=== PATIENT | male | born 1950 | race Asian ===

== ENCOUNTER 2022-06-13 16:31 | Inpatient (IN) | payer BC, OTHER ==
[~2022-06-13 16:31] MED LIST: CINACALCET HCL 30 MG TAB PO SCH
--- OUTSIDE RECORDS SUMMARY | 2022-06-13 16:35 | XMS REPORT | Continuity of Care Document ---
:1950 Author Organization [facility] t Address [address] [place] [address] [address]. [address] [place] [address] Care Team Providers Name Role Phone PCP, PATIENT DOES NOT HAVE A Primary Care Physician ESTHER London Attending Clinician Unavailable BAIRON MCKEON Attending Clinician Unavailable Bairon Mckeon MD Attending Clinician Payers Payer Name Policy Type Policy Number Effective Date Expiration Date Jean Claude vergara [employer] [id number] 2020 OUT OF NETWORK 00:00:00 Problems Condition Condition Condition Status Onset Resolution Last Treating Co mments Source Name Details Category Date Date Treatment Clinician Date No known No known Disease Unive rs active active ity of problems problems [facility] Allergies, Adverse Reactions, Alerts Allergy Allergy Status Severity Reaction(s) Onset Inactive Treating Comm ents Source Name Type Date Date Clinician NO KNOWN Drug Active Univers ALLERGIE Class ity of S [facility] Social History Social Habit Start Date Stop Date Quantity Comments Source Exposure to Not sure [facility] SARS-CoV-2 (event) Medica l Branch Tobacco use and 2021-04-13 2021-04-13 Never used [facility] exposure 00:00:00 00:00:00 [facility] Sex Assigned At [birth year] [facility] 00:00:00 00:00:00 [facility] Smoking Status Start Date Stop Date Source Never smoker [facility] Medications Ordered Filled Start Stop Current Ordering Indication Dosage Frequency Signature Comments Components Source Medication Medication Date Date Medication? Clinician (SIG) Name Name mupirocin 2 2020-06 Yes [id number] Apply to Univers % ointment 06-13 [id number] area(s) 3 it y of 00:00: (three) [place] 00 times Medical daily. Branch Immunizations Ordered Filled Immunization Date Status Comments Sourc e Immunization Name Name TDAP 2021-04-13 Completed University of 00:00:00 [facility] Vital Signs Vital Name Observation Time Observation Value Comments Source Systolic blood 2021-04-13 15:20:00 158 mm[Hg] Univer sity of pressure [facility] Diastolic blood 2021-04-13 15:20:00 76 mm[Hg] Unive rsity of pressure [facility] Heart rate 2021-04-13 15:19:00 65 /min [facility] Body temperature 2021-04-13 15:19:00 36.67 [facility] Respiratory rate 2021-04-13 15:19:00 16 /min [facility] Body weight 2021-04-13 15:19:00 75.615 kg [facility] Oxygen saturation in 2021-04-13 15:19:00 99 /min [facility] Arterial blood by [facility] Pulse oximetry Branch Procedures Procedure Date / Time Performed Performing Clinician Sour e TDAP VACCINE, >11 2021-04-13 15:48:23 Bairon Mckeon [facility] YRS, IM Medical Branch Encounters Start End Encounter Admission Attending Care Care Encounter Source Date/Time Date/Time Type Type Clinicians Facility Department ID 2021-06-18 2021-06-[address] [facility] [id number] Univers 15:30:00 15:25:54 ESTHER farah [facility] 2021-04-13 2021-04-[address] [facility] [id number] Univers 10:20:00 10:53:33 BAIRON farah [facility] 2021-04-13 2021-04-13 Urgent Dada WVSANJUANA [id number] Univers 10:13:37 10:53:[address] [facility] [id number] it y of LECK KILL [id number] Tuan as PK?BLEA [id number] [address] MEDICAL OFFICE BUILDING Results This patient has no known results.
[2022-06-13] MEDS ORDERED: LABETALOL HCL 100 MG/20 ML ONE (17:54)
[2022-06-13] MEDS ORDERED: MAGNES/ALUMIN/SIMET 30ML UCUP ONE (17:54)
[2022-06-13] MEDS ORDERED: LIDOCAINE VISCOUS 2% SOLN 15 ML UDC ONE (17:54)
[2022-06-13] MEDS ORDERED: FAMOTIDINE 20 MG TAB ONE (17:54)
[2022-06-13 18:06] LABS: Absolute Lymphocytes (CBC) 1.5 K/uL (0.7-4.9); Hematocrit 44.1 % (39.6-49.0); Lymphocytes % 14.8 % (15.3-44.8); MCV 65.4 fL (80-100); MPV 9.3 fL (7.6-11.3); RBC Red Blood Cell Count 6.75 M/uL (4.33-5.43)
--- NOTE | 2022-06-13 18:09 | RAD REPORT ---
EXAM DESCRIPTION: CT - Head Brain Wo Cont - 06/13/2022 5:59 pm CLINICAL HISTORY: Headache COMPARISON: None TECHNIQUE: Computed axial tomography of the head was obtained. IV contrast was not requested. All CT scans are performed using dose optimization technique as appropriate and may include automated exposure control or mA/KV adjustment according to patient size. FINDINGS: An intracranial bleed is not seen . The ventricles are normal in caliber. No extra-axial fluid collection is noted. No significant hypodensity within the brain Fluid within the sinuses/ mastoids is not seen. IMPRESSION: No acute intracranial abnormality is seen. If patient's symptoms persist MRI of the bra in would be recommended.
[2022-06-13 18:35] LABS: Blood Morphology Comment NOTED (NOT SEEN); Hypochromasia 1+; Platelet Estimate ADEQ; White Blood Cell Scan OK (OK)
--- NOTE | 2022-06-13 18:50 | ER ---
Nurse's Notes [facility] Name: Ambrose Hyman Age: 71 yrs Sex: Male : 1950 Arrival Date: 06/13/2022 Time: 16:33 Bed 6 Private MD: Diagnosis: Hypertensive urgency;Hypercalcemia;Acute kidney injury Presentation: 06/13 17:17 Chief complaint: Parent and/or Guardian states: High blood pressure since yesterday. ss states, "I even gave him his evening medications and his blood pressure is still high.". Coronavirus screen: Client denies travel out of the [place] in the last 14 days. Ebola Screen: Patient denies exposure to infectious person. Patient denies travel to an Ebola-affected area in the 21 days before illness onset. Initial Sepsis Screen: Does the patient meet any 2 criteria? No. Patient's initial sepsis screen is negative. Does the patient have a suspected source of infection? No. Patient's initial sepsis screen is negative. Risk Assessment: Do you want to hurt yourself or someone else? Patient reports no desire to harm self or others. Onset of symptoms was June 12, 2021. 17:17 Method Of Arrival: Ambulatory ss 17:17 Acuity: ADEEL 2 ss Triage Assessment: 18:26 Headache History: Denies prior headaches. General: Appears in no apparent distress. ll1 Behavior is calm, cooperative, appropriate for age. Pain: Denies pain. 06/14 09:04 Pain: Pain began 2-3 days ago. Also complains of no other associated symptoms. ll1 Historical: - Allergies: 06/13 17:19 No Known Allergies; ss - Home Meds: 17:19 lisinopril 20 mg Oral tab 1 tab twice a day [Active]; amlodipine 5 mg tab 1 tab twice a ss day [Active]; - PMHx: 17:19 Hypertensive disorder; ss - Immunization history:: Client reports receiving the Jorgito \\T\\ Jorgito single-dose vaccine. - Social history:: Smoking status: Patient denies any tobacco usage or history of. Screenin:33 [facility] ED Fall Risk Assessment (Adult) Impaired Gait Yes (1 pt) Mobility Assist ll1 Device Used Yes (1 pt) Score/Fall Risk Level 0 - 2 = Low Risk Oriented to surroundings, Maintained a safe environment, Educated pt \\T\\ family on fall prevention, incl call for assistance when getting out of bed, Hourly rounding (assess needs \\T\\ fall precautionary measures) done. Abuse screen: Denies threats or abuse. Nutritional screening: No deficits noted. Tuberculosis screening: No symptoms or risk factors identified. Assessment: 17:32 General: Appears in no apparent distress. Behavior is calm, cooperative, appropriate ll1 for age. Pain: Complains of pain in throat Pain currently is 2 out of 10 on a pain scale. Quality of pain is described as aching. Neuro: Reports headache high BP. Cardiovascular: No deficits noted. Respiratory: No deficits noted. EENT: Reports pain when swallowing. 18:26 Reassessment: No changes from previously documented assessment. Patient and/or family ll1 updated on plan of care and expected duration. Pain level reassessed. Patient is alert, oriented x 3, equal unlabored respirations, skin warm/dry/pink. 18:36 Reassessment: No changes from previously documented assessment. Patient and/or family ll1 updated on plan of care and expected duration. Pain level reassessed. Patient is alert, oriented x 3, equal unlabored respirations, skin warm/dry/pink. Vital Signs: 17:17 BP 219 / 95; Pulse 88; Resp 16; Temp 98.2(TE); Pulse Ox 99% on R/A; ss 17:20 BP 208 / 112; Pulse 88; ss 17:33 BP 203 / 88; Pulse 81; ll1 18:25 BP 172 / 87; Pulse 75; Resp 17; Pulse Ox 96% on R/A; ll1 18:35 BP 176 / 76; Pulse 67; Resp 16; Pulse Ox 97% ; ll1 19:05 BP 193 / 81; Pulse 71; Pulse Ox 97% ; ll1 20:41 BP 175 / 89; Pulse 69; Resp 17; Pulse Ox 98% on R/A; ll3 ED Course: 16:33 Patient arrived in ED. am2 16:39 Mariella Bolanos MD is Attending Physician. sd2 17:18 Triage completed. ss 17:19 Arm band placed on left wrist. ss 17:20 No provider procedures requiring assistance completed. Inserted saline lock: 22 gauge ll1 in right antecubital area, using aseptic technique. Blood collected. 17:32 Imelda Sanchez RN is Primary Nurse. ll1 17:32 Patient placed in an exam room, on a stretcher. ll1 17:33 Patient has correct armband on for positive identification. Bed in low position. Call ll1 light in reach. Client placed on continuous cardiac and pulse oximetry monitoring. NIBP monitoring applied. bus driver/monitor on. 18:01 CT Head Brain wo Cont In Process Unspecified. EDMS 18:50 Hugo Rock is Hospitalizing Provider. sd2 19:02 David Carr MD is Hospitalizing Provider. sd2 19:12 Primary Nurse role handed off by Imelda Sanchez, JOSEPH tw5 19:12 Lea Diaz is Primary Nurse. tw5 19:13 COVID-19/FLU A+B Sent. tw5 19:36 Chest Single View XRAY In Process Unspecified. EDMS 01 09:04 Patient admitted, IV remains in place. ll1 Administered Medications: 06/13 18:25 Drug: Labetalol 10 mg Route: IV; Rate: bolus; Infused Over: 2 mins; Site: right ll1 antecubital; 19:00 Follow up: Response: No adverse reaction; IV Status: Completed infusion; IV Intake: 2ml ll1 18:25 Drug: Pepcid (famotidine) 20 mg Route: PO; ll1 19:01 Follow up: Response: No adverse reaction ll1 18:25 Drug: GI Cocktail without - (Maalox Suspension 30 ml, Lidocaine Liquid 2 % 15 ll1 ml) Route: PO; 19:01 Follow up: Response: No adverse reaction ll1 19:00 Drug: NS 0.9% 1000 ml Route: IV; Rate: 1 bolus; Site: right antecubital; ll1 20:52 Follow up: Response: No adverse reaction; IV Status: Completed infusion; IV Intake: ll3 1000ml 19:42 Drug: NS 0.9% 1000 ml Route: IV; Rate: 1000 ml; Site: right antecubital; ll3 21:57 Drug: Lasix (furosemide) 40 mg Route: IVP; Site: right antecubital; ll3 21:57 Drug: NS 0.9% 1000 ml Route: IV; Rate: 150 ml/hr; Site: right antecubital; ll3 Medication: 17:34 VIS not applicable for this client. ll1 Intake: 19:00 IV: 2ml; Total: 2ml. ll1 20:52 IV: 1000ml; Total: 1002ml. ll3 Outcome: 18:50 Decision to Hospitalize by Provider. sd2 06/14 09:04 Admitted to Med/surg accompanied by tech, via wheelchair, with chart. ll1 Condition: stable Instructed on the need for admit. 09:04 Patient left the ED. ll1 Signatures: Dispatcher [employer] EDMS Janis Navarro RN RN Mary Beth Bobby 2 Imelda Sanhcez RN RN ll1 Lea Diaz [facility] Arleth Michael RN RN ll3 Mariella Bolanos MD MD sd2 Corrections: (The following items were deleted from the chart) 06/13 17:20 17:19 Allergies: No Known Allergies; ss ss 17:20 17:19 Allergies: Ibuprofen; ss
--- NOTE | 2022-06-13 18:51 | EDPHYS ---
Physician Documentation [facility] Name: Ambrose Hyman Age: 71 yrs Sex: Male : 1950 Arrival Date: 06/13/2022 Time: 16:33 Bed 6 Private MD: ED Physician Mariella Bolanos HPI: 06/13 17:25 This 71 yrs old Male presents to ER via Ambulatory with complaints of High Blood sd2 Pressure, Headache. 17:25 71 yo M presents with CC of high blood pressure readings at home since yesterday. sd2 reports BP running 180s systolic since yesterday. Improved yesterday to 160s but worsened again today despite taking his AM BP meds and taking his evening meds early today around 2PM. Pt also endorses associated KING and has had a slight cough that started recently. No recent changes in BP medications. Takes Lisinopril and Amlodipine. Endorses blurred vision but states this has been ongoing for quite some time. Denies CP or SOB. . Historical: - Allergies: 17:19 No Known Allergies; ss - Home Meds: 17:19 lisinopril 20 mg Oral tab 1 tab twice a day [Active]; amlodipine 5 mg tab 1 tab twice a ss day [Active]; - PMHx: 17:19 Hypertensive disorder; ss - Immunization history:: Client reports receiving the Jorgito \T\ Jorgito single-dose vaccine. - Social history:: Smoking status: Patient denies any tobacco usage or history of. ROS: 17:25 Constitutional: Negative for fever, chills, and weight loss, Eyes: Negative for injury, sd2 pain, redness, and discharge, Cardiovascular: Negative for chest pain, palpitations, and edema, Respiratory: Negative for shortness of breath, cough, wheezing. Abdomen/GI: Negative for abdominal pain, nausea, vomiting, diarrhea. MS/Extremity: Negative for injury and deformity, Skin: Negative for injury, rash, and discoloration, Neuro: Positive for headache, Negative for numbness and tingling. Exam: 17:25 Constitutional: This is a well developed, well nourished patient who is awake, alert, sd2 and in no acute distress. Head/Face: Normocephalic, atraumatic. Eyes: EOMI, normal conjunctiva bilaterally Chest/axilla: Normal chest wall appearance and motion. Nontender with no deformity. Cardiovascular: Regular rate and rhythm with a normal S1 and S2. No gallops, murmurs, or rubs. 2+ distal pulses. Respiratory: Lungs have equal breath sounds bilaterally, clear to auscultation and percussion. No rales, rhonchi or wheezes noted. No increased work of breathing, no retractions or nasal flaring. Abdomen/GI: Soft, non-tender, with normal bowel sounds. No guarding or rebound. No evidence of tenderness throughout. Skin: Warm, dry with normal turgor. Normal color with no rashes, no lesions, and no evidence of cellulitis. MS/ Extremity: Pulses equal, no cyanosis. Neurovascular intact. Full, normal range of motion. Ambulatory without difficulty. Neuro: Awake and alert, GCS 15, oriented to person, place, time, and situation. Cranial nerves II-XII grossly intact. Motor strength 5/5 in all extremities. Sensory grossly intact. Cerebellar exam normal. Normal gait. Psych: Awake, alert, with orientation to person, place and time. Behavior, mood, and affect are within normal limits. Vital Signs: 17:17 BP 219 / 95; Pulse 88; Resp 16; Temp 98.2(TE); Pulse Ox 99% on R/A; ss 17:20 BP 208 / 112; Pulse 88; ss 17:33 BP 203 / 88; Pulse 81; ll1 18:25 BP 172 / 87; Pulse 75; Resp 17; Pulse Ox 96% on R/A; ll1 18:35 BP 176 / 76; Pulse 67; Resp 16; Pulse Ox 97% ; ll1 19:05 BP 193 / 81; Pulse 71; Pulse Ox 97% ; ll1 20:41 BP 175 / 89; Pulse 69; Resp 17; Pulse Ox 98% on R/A; ll3 MDM: 17:25 Data reviewed: vital signs, nurses notes. sd2 17:28 Patient medically screened. sd2 18:48 Differential diagnosis: hypertensive urgency/emergency, dehydration, electrolyte sd2 abnormality, COVID, ICH among others. Counseling: I had a detailed discussion with the patient and/or guardian regarding: the historical points, exam findings, and any diagnostic results supporting the discharge/admit diagnosis, the presence of at least one elevated blood pressure reading (>120/80) during this emergency department visit, lab results, radiology results, the need for further work-up and treatment in the hospital. ED course: Labs and imaging reviewed. Hypercalcemia present with GABY. Pt with normal kidney function in February on labs drawn per who is a RN. Pt does drink water regularly and they doubt dehydration with patient's calcium levels. Pt to be admitted for further management at this time. . 06/13 17:25 Order name: CBC with Diff; Complete Time: 18:42 sd2 06/13 17:25 Order name: BMP; Complete Time: 18:42 sd2 06/13 18:30 Order name: COVID-19/FLU A+B; Complete Time: 01:49 ll1 06/13 18:36 Order name: CBC Smear Scan; Complete Time: 18:42 EDMS 06/13 19:07 Order name: PTH Intact; Complete Time: 01:49 EDMS 06/13 19:07 Order name: PTH-Related Protein EDMS 06/13 19:07 Order name: Thyroid Stimulating Hormone; Complete Time: 01:49 EDMS 06/13 19:07 Order name: Vitamin D, 25 (OH), TOTAL; Complete Time: 01:49 EDMS 06/13 19:07 Order name: Vitamin D,1,25 Dihydroxy EDMS 06/13 19:07 Order name: Ionized Calcium EDMS 06/13 19:08 Order name: Liver (Hepatic) Function; Complete Time: 01:49 EDMS 06/13 19:08 Order name: Magnesium; Complete Time: 01:49 EDMS 06/13 19:08 Order name: Phosphorus; Complete Time: 01:49 EDMS 06/13 19:32 Order name: Ur Protein EDMS 06/13 17:25 Order name: CT Head Brain wo Cont; Complete Time: 18:10 sd2 06/13 19:22 Order name: Chest Single View XRAY; Complete Time: 20:18 la1 06/13 19:32 Order name: Uric Acid; Complete Time: 01:49 EDMS 06/13 19:35 Order name: Immunofixation Electrophoresis EDMS 06/13 19:35 Order name: Protein Electrophoresis, 24hr EDMS 06/13 21:21 Order name: T4 Free; Complete Time: 01:49 EDMS 06/13 22:02 Order name: RAD; Complete Time: 01:49 EDMS 06/13 22:48 Order name: US; Complete Time: 01:49 EDMS 06/14 03:00 Order name: CBC with Automated Diff EDMS 06/14 03:08 Order name: Comprehensive Metabolic Panel EDNC 06/14 08:57 Order name: EDMS Administered Medications: 18:25 Drug: Labetalol 10 mg Route: IV; Rate: bolus; Infused Over: 2 mins; Site: right ll1 antecubital; 19:00 Follow up: Response: No adverse reaction; IV Status: Completed infusion; IV Intake: 2ml ll1 18:25 Drug: Pepcid (famotidine) 20 mg Route: PO; ll1 19:01 Follow up: Response: No adverse reaction ll1 18:25 Drug: GI Cocktail without - (Maalox Suspension 30 ml, Lidocaine Liquid 2 % 15 ll1 ml) Route: PO; 19:01 Follow up: Response: No adverse reaction ll1 19:00 Drug: NS 0.9% 1000 ml Route: IV; Rate: 1 bolus; Site: right antecubital; ll1 20:52 Follow up: Response: No adverse reaction; IV Status: Completed infusion; IV Intake: ll3 1000ml 19:42 Drug: NS 0.9% 1000 ml Route: IV; Rate: 1000 ml; Site: right antecubital; ll3 21:57 Drug: Lasix (furosemide) 40 mg Route: IVP; Site: right antecubital; ll3 21:57 Drug: NS 0.9% 1000 ml Route: IV; Rate: 150 ml/hr; Site: right antecubital; ll3 Disposition Summary: 06/13/22 18:50 Hospitalization Ordered Condition: Stable sd2 Problem: new sd2 Symptoms: have improved sd2 Bed/Room Type: Standard sd2 Provider: David Carr(06/13/22 19:02) sd2 Hospitalization Status: Inpatient Admission(06/13/22 19:46) la1 Location: Telemetry/MedSurg (Inpatient)(06/14/22 07:24) bd Room Assignment: 229(06/14/22 07:24) bd Diagnosis - Hypertensive urgency sd2 - Hypercalcemia sd2 - Acute kidney injury sd2 Forms: - Medication Reconciliation Form sd2 - SBAR form sd2 Signatures: Dispatcher [employer] EDMS Tabitha Rider bd Elana Horton, RN RN [facility], Janis, JOSEPH RN ss Mattie, Dez, FURNITURE SPRAYER-C FURNITURE SPRAYER-Cla1 Imelda Sanchez RN RN ll1 Arleth Michael RN RN ll3 Mariella Bolanos MD MD sd2 Corrections: (The following items were deleted from the chart) 17:20 17:19 Allergies: No Known Allergies; ss ss 17:20 17:19 Allergies: Ibuprofen; ss ss 19:02 18:50 Hugo Rock sd2 sd2 19:33 18:50 Telemetry/MedSurg (observation) sd2 mw 19:33 18:50 sd2 mw 19:46 18:50 Observation sd2 la1 06/14 07:24 06/13 19:33 [facility] ER HOLD mw 06/14 07:24 06/13 19:33 ERHOLD- [facility]
[2022-06-13] MEDS ORDERED: NA CHLORIDE 0.9% 1,000 ML ONE ×3 (18:59→21:16)
--- NOTE | 2022-06-13 20:06 | P.HP ---
Certification for Inpatient Patient admitted to: Inpatient With expected LOS: >2 Midnights Patient will require the following post-hospital care: None Practitioner: I am a practitioner with admitting privileges, knowledge of patient current condition, hospital course, and medical plan of care. Services: Services provided to patient in accordance with Admission requirements found in Title 42 Section 412.3 of the Code of Federal Regulations <MattieDez Ronquillo - Last Filed: 06/13/22 20:02> Patient History Date of Service: 06/13/22 Reason for admission: Hypercalcemia, GABY History of Present Illness: 71-year-old male with distant history of hyperthyroidism approximately 30 years ago S/P radioactive iodine treatment, hypertension presents emergency department for 1 week of generalized weakness, headache, hypertension with blood pressures in the 180s to 190s throughout the day today despite his home oral medications. He was evaluated in the emergency department his labs were significant for mild acute kidney injury with severe hypercalcemia creatinine is 1.8 GFR 40 BUN 28, calcium 17.8. Additional work-up for hypercalcemia ordered and pending, case was discussed with nephrology who recommends additional IV fluids followed by Lasix, additional laboratory test which have been ordered. Patient also complaining of cough, chest x-ray ordered for further evaluation. - Past Medical/Surgical History -: Hypertension -: Hyperthyroidism ~ 1989 S/P radioactive iodine treatment -: Cholecystectomy Psychosocial/ Personal History: Patient lives at home with his daughter - Family History Family History: Reviewed- Non-Contributory - Social History Smoking Status: Never smoker Alcohol use: No CD- Drugs: No Caffeine use: No Place of Residence: Home <Dez Phelps - Last Filed: 06/13/22 20:02> Date of Service: 06/14/22 <David Carr - Last Filed: 06/14/22 14:18> Review of Systems 10-point ROS is otherwise unremarkable General: Weakness, Malaise Neurological: Other (Headache) <Dez Phelps - Last Filed: 06/13/22 20:02> Physical Examination - Physical Exam General: Alert, In no apparent distress, Oriented x3 HEENT: Atraumatic, PERRLA, Mucous membr. moist/pink, EOMI, Sclerae nonicteric Neck: Supple, 2+ carotid pulse no bruit, No LAD, Without JVD or thyroid abnormality Respiratory: Clear to auscultation bilaterally, Normal air movement Cardiovascular: Regular rate/rhythm, Normal S1 S2 Capillary refill: <2 Seconds Gastrointestinal: Normal bowel sounds, No tenderness Musculoskeletal: No tenderness Integumentary: No rashes Neurological: Normal speech, Normal strength at 5/5 x4 extr, Normal tone, Normal affect - Studies Laboratory Data (last 24 hrs) 06/13/22 17:40: Sodium 141, Potassium 4.0, BUN 28 H, Creatinine 1.80 H, Glucose 131 H 06/13/22 17:40: WBC 10.10, Hgb 14.2, Hct 44.1, Plt Count 206 <Dez Phelps - Last Filed: 06/13/22 20:02> - Studies Laboratory Data (last 24 hrs) 06/13/22 17:40: Sodium 141, Potassium 4.0, BUN 28 H, Creatinine 1.80 H, Glucose 131 H 06/13/22 17:40: WBC 10.10, Hgb 14.2, Hct 44.1, Plt Count 206 <David Carr - Last Filed: 06/14/22 14:18> Assessment and Plan - Plan Assessment: Severe hypercalcemia GABY Hypertensive urgency Plan: Severe hypercalcemia: Case discussed with nephrology, additional diagnostic tests ordered. Patient was given 2 L IV fluid bolus in ED followed by IV Lasix, maintenance fluids with NS at 150/h. Await results from further diagnostics. GABY: Continue as above, renal ultrasound ordered. Nephrology consulted. Hypertensive urgency: Patient will likely require adjustment of his home medications, will review once verified. DVT PPX: Lovenox Code status: Full Discharge Plan: Home Plan to discharge in: 48 Hours - Advance Directives Does patient have a Living Will: No Does patient have a Durable POA for Healthcare: No - Code Status/Comfort Care Code Status Assessed: Yes (Full code) Critical Care: No Time Spent Managing Pts Care (In Minutes): 55 <Dez Phelps - Last Filed: 06/13/22 20:02> Physician Review: Patient Assessed, Agree with Above Assessment and Plan <David Carr - Last Filed: 06/14/22 14:18>
--- NOTE | 2022-06-13 20:11 | RAD REPORT ---
EXAM DESCRIPTION: Any Single View06/13/2022 7:34 pm CLINICAL HISTORY: Cough COMPARISON: none FINDINGS: Left base is hazy. Heart appears borderline enlarged. Right lung appears clear. IMPRESSION: Left base is hazy. This could be secondary to overlying soft tissue or infiltrate. PA an d lateral chest series is recommended
[2022-06-13 20:24] LABS: SARS-COV-2 RT PCR NEGATIVE (NEGATIVE)
[2022-06-13 21:06] LABS: ALT/SGPT 23 U/L (16-61); AST/SGOT 11 U/L (15-37); Albumin 3.6 g/dL (3.4-5.0); Alkaline Phosphatase 128 U/L (45-117); Bilirubin Total 0.3 mg/dL (0.2-1.0); Magnesium 1.9 mg/dL (1.6-2.4); Phosphorus 2.8 mg/dL (2.5-4.9); Protein, Total 7.5 g/dL (6.4-8.2)
[2022-06-13 21:07] LABS: Bilirubin Direct < 0.1 mg/dL (0-0.2)
[2022-06-13] MEDS ORDERED: ONDANSETRON 4 MG/2 ML VIAL IV PRN (21:16)
[2022-06-13] MEDS ORDERED: FUROSEMIDE 40 MG/4 ML VIAL ONE (21:16)
[2022-06-13] MEDS ORDERED: HYDRALAZINE HCL 20 MG/ML VIAL IV PRN (21:16)
[2022-06-13] MEDS: NA CHLORIDE 0.9% 1,000 ML IV SCH (21:57)
--- NOTE | 2022-06-13 22:01 | RAD REPORT ---
EXAM DESCRIPTION: Any Pa And Lat (2 Views)06/13/2022 9:31 pm CLINICAL HISTORY: Hypertension/abnormal chest x-ray COMPARISON: June 13, 2022 FINDINGS: The lungs appear clear of acute infiltrate. The heart is normal size IMPRESSION: No acute abnormalities displayed
--- NOTE | 2022-06-13 22:47 | RAD REPORT ---
EXAM DESCRIPTION: US - Renal Ultrasound-Complete - 06/13/2022 10:24 pm CLINICAL HISTORY: Acute renal failure COMPARISON: None. FINDINGS: The right kidney measures 10 cm with an increased echotexture. The left kidney measures 11 cm with an increased echotexture. 1.3 centimeter cyst Significant hydronephrosis is not seen No gross abnormality of bladder is noted IMPRESSION: Increased renal echotexture consistent with parenchymal disease
[2022-06-14 02:47] LABS: Absolute Lymphocytes (CBC) 1.2 K/uL (0.7-4.9); Hematocrit 43.3 % (39.6-49.0); Lymphocytes % 12.6 % (15.3-44.8); MPV 9.5 fL (7.6-11.3); RBC Red Blood Cell Count 6.62 M/uL (4.33-5.43)
[2022-06-14 03:00] LABS: MCV 65.4 fL (80-100)
[2022-06-14 03:07] LABS: Albumin 3.8 g/dL (3.4-5.0); Bilirubin Total 0.3 mg/dL (0.2-1.0); Potassium 4.2 mmol/L (3.5-5.1); Protein, Total 7.9 g/dL (6.4-8.2)
[2022-06-14] MEDS: NA CHLORIDE 0.9% 1,000 ML IV SCH ×5 (03:56→23:44)
[2022-06-14] MEDS ORDERED: NA CHLORIDE 0.9% 1,000 ML ONE (04:47)
[2022-06-14] MEDS: LEVOTHYROXINE SOD 0.125 MG TAB PO SCH (06:30)
--- NOTE | 2022-06-14 08:56 | RAD REPORT ---
EXAM DESCRIPTION: US - Thyroid Para Parotid Gland - 06/13/2022 11:14 pm CLINICAL HISTORY: Hyperparathyroidism COMPARISON: None FINDINGS: The right lobe of the thyroid measures 3.9 x 2.2 x 2 centimeters. 1.7 centimeter hypo to i soechoic nodule well-circumscribed. 1 centimeter isoechoic well-circumscribed nodule. 6 millimeter cystic nodule. The left lobe of the thyroid measures 2.7 x 0.9 x 1.3 centimeters. IMPRESSION: Several right thyroid nodules probably benign. Follow-up ultrasound in 1 year is recomme nded for re-evaluation
[2022-06-14] MEDS: CINACALCET HCL 30 MG TAB PO SCH (09:00)
[2022-06-14] MEDS: CALCITONIN 200 IU/ML INJ (2ML VIAL) SQ SCH (09:00)
[2022-06-14] MEDS: ENOXAPARIN 40 MG/0.4 ML SQ SCH ×2 (09:00→10:00)
[2022-06-14] MEDS: AMLODIPINE 5 MG TAB PO SCH ×3 (09:00→20:07)
[2022-06-14] MEDS ORDERED: ACETAMINOPHEN 325 MG TABLET PO PRN (09:42)
[2022-06-14] MEDS ORDERED: PAMIDRONATE DISOD 30 MG VIAL IV ONE (11:00)
[2022-06-14] MEDS ORDERED: PAMIDRONATE IV ONE (11:00)
[2022-06-14] MEDS ORDERED: NA CHLORIDE 0.9% IV ONE (11:00)
--- NOTE | 2022-06-14 13:58 | CON ---
Date of Consultation: 06/14/2022 Reason For Consultation: Hypercalcemia, acute kidney injury. History Of Present Illness: This is a pleasant 71-year-old gentleman with significant past medical h istory of obstructive sleep apnea, hypertension, GERD, the patient was in his regular state of health till the last 2 weeks when started having fatigue, weakness, and gastric reflux. For that reason, t he patient was started to take Tums p.r.n. According to him, total that he took almost only 10 table ts of Tums. The patient has fatigue and blood pressure started being aggravated. For that reason, amadeo berg reported to the hospital. Upon arrival to the hospital, the patient found to have hypercalcemia wi th calcium 17.8. According to the patient, the patient had lab back in February with normal creatin ine and normal calcium. Reviewing the data for the patient, the patient had normal calcium before. The patient denied taking any hydrochlorothiazide on or any herbal. Over the night, the patient was started on IV hydration. The patient had urine output of 3 L after the boluses and giving Lasix. Ca lcium did not improve significantly. Past Medical History: Includes; 1.GERD. 2.Obstructive sleep apnea. 3.Hypertension. 4.Hyperparathyroidism, status post radioactive back in 1989. Past Surgical History: Includes cholecystectomy. Family History: Positive for hypertension. Social History: Denied smoking, denied drinking, denied drugs abuse. Review of Systems: Head and Neck: No red eye. No ear pain. GI: No nausea. No vomiting. : No polyuria. No dysuria. Has hesitancy. Has nocturia. Otr Owner Operator: Not applicable. Respiratory: Has cough and shortness of breath. Cardiovascular: No chest pain. No leg swelling. Endocrine: No polydipsia. Skin: No rash. Neuro: No neuropathy. Musculoskeletal: Generalized fatigue. Physical Examination: Vital Signs: When I saw the patient; blood pressure 177/83, pulse of 64, afebrile. Chest: Clear to auscultation. Heart: S1, S2, regular. Abdomen: Soft, nontender. Extremity: No edema. Neurological: Alert, oriented x3. No focal. Vascular: Negative. Lymph node: No lymphadenopathy. No organomegaly. Laboratory Data: Sodium 144, potassium 4.2, bicarb 30, BUN 27, creatinine 1.7, GFR 42, calcium 16.3. LFT within normal limit. Albumin of 3.8. TSH 7, PTH of 934. Hemoglobin 13.6. Urinalysis still p ending. Current Medications: The patient on include amlodipine 5 mg b.i.d., hydralazine p.r.n., Zofran, levo thyroxine, IV fluid at 150 per hour. Assessment And Plan: 1.Hypercalcemia, mostly secondary to primary hyperparathyroidism. We will schedule for sestamibi nu clear medicine to localize the parathyroid gland and we will follow up with ENT. In the meantime, patient is going to receive pamidronate, then after we will do the sestamibi. We will start the pa tient on cinacalcet and we will follow up the patient. 2.Hypertension, not controlled with the presence of acute kidney injury. I will avoid resuming any KADEEM inhibitor or ARB. I am going to start the patient on carvedilol and we will follow up. 3.Acute kidney injury secondary to prerenal, secondary to dehydration secondary to calcium diuresis. Obstructive uropathy has been ruled out with normal size kidney 03/22. Given the nocturia, I am go ing to send for PSA and we will follow up and we will continue to monitor. 4.Renal cyst, simple. We will monitor. CORY/APOORVA Voice ID: [id number] Report ID: [id number]
--- NOTE | 2022-06-14 14:26 | P.PN ---
Subjective Date of Service: 06/14/22 Chief Complaint: Hypercalcemia, GABY No acute events overnight. He reports that he feels well this morning. He continues to experience generalized myalgias, but this has improved compared to yesterday. Review of Systems 10-point ROS is otherwise unremarkable General: Weakness, Malaise Physical Examination - Vital Signs Temperature: 98.2 F Blood Pressure: 177/83 Pulse: 64 Respirations: 18 Pulse Ox (%): 98 - Physical Exam General: Alert, In no apparent distress, Oriented x3 HEENT: Atraumatic, Mucous membr. moist/pink, EOMI, Sclerae nonicteric Neck: JVD not distended, No Thyromegaly Respiratory: Clear to auscultation bilaterally, Normal air movement Cardiovascular: No edema, Regular rate/rhythm, Normal S1 S2, No gallops, No rubs, No murmurs Gastrointestinal: Normal bowel sounds, Soft and benign, Non-distended, No tenderness, No rebound, No guarding Musculoskeletal: No clubbing Integumentary: No rashes Neurological: Normal speech, Cranial nerves 3-12 intact, Normal affect - Studies Laboratory Data (last 24 hrs) 06/13/22 17:40: Sodium 141, Potassium 4.0, BUN 28 H, Creatinine 1.80 H, Glucose 131 H 06/13/22 17:40: WBC 10.10, Hgb 14.2, Hct 44.1, Plt Count 206 Assessment And Plan - Plan # Hypercalcemia suspect secondary to Primary Hyperparathyroidism # Hypovitaminosis D - Evaluation thus far: - Labs = initial Ca2+ 17.8, Ionized Ca2+ pending, Albumin 3.6, Phos 2.8, Magnesium 1.9, 25-hydroxyvitamin D 19.9, PTH 934.7, PTHrP pending, TSH 7.08 - Urinalysis = pending - SPEP/UPEP = pending - Medication review = takes PRN calcium carbonate at home, but not enough to explain his degree of hypercalcemia - Management plan: - Consulted Nephrology and spoke with Dr. Pardo - recommendations appreciated - Consulted ENT and spoke with Dr. Corona - recommendations appreciated - Recommended parathyroid (sestamidi) scan - Continue IV fluids with Normal Saline - Continue pamidronate, cinacalcet # KDIGO Stage I Acute Kidney Injury - Creatinine = 1.80 -> 1.71 - Urinalysis = pending - Renal ultrasound = "increased renal echotexture consistent with parenchymal disease" - IV fluids as mentioned above - Monitor creatinine and urine output - Renally dose medications # Hypothyroidism secondary to Prior Thyroid Ablation # Several Right-Thyroid Nodules - TSH = 7.08, Free T4 = 0.68 - Thyroid ultrasound = "several right thyroid nodules probably benign. Follow-up ultrasound in 1 year is recommended for re-evaluation" - Started low dose levothyroxine # Hypertensive Urgency - Blood pressure better controlled - Resume home medications once verified David Carr M.D.
[2022-06-14] MEDS: carvediloL 6.25 MG TAB PO SCH (20:08)
[2022-06-14 21:03] LABS: Specific Gravity 1.005 (1.005-1.030); Urine Bacteria <20 /HPF (<20); Urine Bilirubin NEGATIVE (Negative); Urine Blood Negative (Negative); Urine Clarity Turbid (Clear); Urine Color Colorless (Yellow); Urine Crystals Unidentified Few /HPF (None Seen); Urine Glucose NEGATIVE (Negative); Urine Protein NEGATIVE (Negative); Urine RBC <5 /HPF (None Seen); Urine Urobilinogen Normal (Normal); Urine WBC Clump Rare /HPF (None Seen)
[2022-06-14 21:07] LABS: UR PROTEIN 8.9 mg/dL (<11.9)
[2022-06-14 21:08] LABS: UR CREAT < 18.0 mg/dL (20-370)
[2022-06-15] MEDS: NA CHLORIDE 0.9% 1,000 ML IV SCH ×4 (04:42→20:09)
[2022-06-15 05:50] LABS: Absolute Lymphocytes (CBC) 0.6 K/uL (0.7-4.9); Hematocrit 42.5 % (39.6-49.0); Lymphocytes % 5.7 % (15.3-44.8); MCV 65.2 fL (80-100); MPV 9.2 fL (7.6-11.3); RBC Red Blood Cell Count 6.51 M/uL (4.33-5.43)
[2022-06-15 06:09] LABS: Albumin 3.4 g/dL (3.4-5.0); Bilirubin Total 0.4 mg/dL (0.2-1.0); Phosphorus 2.5 mg/dL (2.5-4.9); Potassium 3.8 mmol/L (3.5-5.1); Protein, Total 7.3 g/dL (6.4-8.2)
[2022-06-15] MEDS: LEVOTHYROXINE SOD 0.125 MG TAB PO SCH (07:34)
[2022-06-15] MEDS ORDERED: POTASSIUM CL SA 10 MEQ TAB PO ONE (09:00)
[2022-06-15] MEDS: CINACALCET HCL 30 MG TAB PO SCH (09:11)
[2022-06-15] MEDS: carvediloL 6.25 MG TAB PO SCH (09:12)
[2022-06-15] MEDS: AMLODIPINE 5 MG TAB PO SCH ×2 (09:13→20:08)
[2022-06-15] MEDS: ENOXAPARIN 40 MG/0.4 ML SQ SCH (09:14)
--- NOTE | 2022-06-15 15:11 | PN ---
Date of Progress Note: 06/15/2022 Subjective: Patient was admitted with acute kidney injury and hypercalcemia. Patient's workup found to have a primary hyperparathyroidism. Patient has sestamibi nuclear medicine test to localize the parathyroid gland yesterday, still reading pending. Patient received pamidronate and aggressive hydr ation. Physical Examination: Vital Signs: Blood pressure is still elevated 185/85, pulse of 80 and afebrile. Chest: Clear to auscultation. Heart: S1, S2 regular. Abdomen: Soft, nontender. Extremities: No edema. Neurologic: Alert. No focality. Patient had urine output of 5500. Laboratory Data: Hemoglobin 13.2. Sodium 144, potassium 4.8, bicarb 26, BUN 27, creatinine 1.7, buddy cium down to 15. Phosphorus 2.5. Albumin 3.4. Corrected calcium 15.5. Current Medications: The patient is on include carvedilol 6.25. Amlodipine 5 mg b.i.d. Assessment And Plan: 1.Hypercalcemia secondary to hyperparathyroidism. I am going to go ahead and continue on the Sensip ar 60 daily. Waiting for the results of the sestamibi. Patient is going to need also CT to look mor e visual on the localization of the gland and we will follow up. I am going to go ahead and send for metanephrine to rule out any MEN syndrome and we will send for cortisol level also, given the fact t hat the patient does not have any previous history and his blood pressure used to be well controlled. 2.Acute kidney injury, normal size kidney. No obstruction. Possible secondary to calcium diuresis. Continue current hydration and we will follow up the patient. 3.Hypertension, not controlled. I am going to increase carvedilol, start the patient on hydralazine for better blood pressure control. As I mentioned, we are sending for a cortisol and metanephrine t o evaluate for any MEN syndrome. 4.Anemia with hypercalcemia. Serum protein electrophoresis is still pending. DERRICK Voice ID: [id number] Report ID: [id number]
--- NOTE | 2022-06-15 15:32 | RAD REPORT ---
EXAM DESCRIPTION: NM - Parathyroid Imaging - 06/14/2022 4:28 pm CLINICAL HISTORY: Elevated parathyroid hormone COMPARISON: None. TECHNIQUE: The patient was administered approximately 26.2 millicuries Tc 99m sestamibi. Anterior im ages of the neck and upper chest were obtained as immediate and 2 hour delayed images. FINDINGS: On the immediate images, asymmetric uptake noted at the right lobe of the thyroid. Lack of uptake at the left thyroid lobe noted. Physiologic parotid and submandibular gland activity is seen . Delayed images show washout of the thyroid activity. There is persistent uptake at the right lobe of the thyroid. No suspicious activity in the neck or upper chest. IMPRESSION: Delayed uptake at the the right lobe of the thyroid that may reflect a parathyroid adeno ma.
--- NOTE | 2022-06-15 16:24 | P.CNS ---
Date of Consult: 06/15/22 Reason for Consult: Hypercalcemia, hyperparathyroidism HPI: Patient presented to ER with weakness, headache, elevated BP at home despi te medications. He was found to have severely elevated calcium and mildly elevated Cr. He was admitted for hydration and medical management and workup for his calcium levels. PMH/PSH: Hypertension, Hyperthyroidism (resolved, treated with ALMODOVAR in the ), Cholecystectomy. Medications: NDKA SH: No tobacco, alcohol or drugs. ROS: as per ER and admissions H&P Physical Exam: Patient was initial evaluated on the evening of Jun 15 and was sleeping restfully and exam deferred to Jun 16. In the early afternoon, the patient was awake, alert, and oriented. Interviewed with his . No si gnificant facial asymmetry or other abnormalities on general exam. Data: 1. [facility] labs reviewed and in March 2022 the patient's calcium was 10.8, Cr 1.17. 2. In April 2021, the Ca was 10.3 and Cr was 1.06. 3. Admission labs in June 2022 showed Ca 17 trending downward to 15 with hydration; Cr 1.7-1.8. PTH >900. 4. Parathyroid scan with uptake on right side. 5. US neck/thyroid with possible nodule, 1.7cm on right - uncertain if this may represent parathyroid gland, will need to confer with radiologist. Care Coordination: I spoke with radiology department in regards to CT imaging for localization of parathyroid adenoma, as this is becoming preferred localization technique, especially in conjuction with sestimibi scan. The protocol requires patient's Cr to be 1.5 or lower before giving IV contrast, though exceptions are sometimes made in certain clinical scenarios. I spoke with nephrology regarding the Cr trend through 06/16/2021 in regards to expectations and he felt that since Ca is going down, the Cr will likely begin to recover. Assessment: 1. Symptomatic Hypercalcemia, primary hyperparathyroidism, acute kidney injury. 2. Hypothyroidism (s/p ALMODOVAR) Recommendations: 1. Given the degree of calcium elevation and symptoms associated with it, the patient will require surgery including parathyroidectomy for definitive control of his calcium levels. After conferring with Nephrology, I think to reasonable to continue hydration and monitor Cr. If Cr is trending down to 1.5 over the next 24-48 hours, I would like to proceed with CT neck with contrast for localization. Once patient is medically stable for discharge, he can follow up closely in the ENT clinic for arrangement of outpatient surgery. If the Cr is not trending down, I will confer with radiology in regards to alternatives such as MRI and/or consideration for surgery during this hospitalization. The patient and are in agreement with plan. Will continue to follow. 2. Continue current dose of LT4, TSH in 3-4 weeks as outpatient for further dose adjustments.
[2022-06-15] MEDS: HYDRALAZINE HCL 25 MG TABLET PO SCH ×2 (17:02→20:07)
[2022-06-15] MEDS ORDERED: POLYETHYL GLY 3350 17 GM/DOSE PO ONE (19:00)
--- NOTE | 2022-06-15 19:35 | P.PN ---
Subjective Date of Service: 06/15/22 Chief Complaint: Hypercalcemia, GABY No acute events overnight. He reports that he feels generalized malaise/weakness this morning. He denies any abdominal pain, nausea, vomiting, or changes in bowel habits. Review of Systems 10-point ROS is otherwise unremarkable General: Weakness (generalized), Malaise Physical Examination - Vital Signs Temperature: 99.6 F Blood Pressure: 169/80 Pulse: 77 Respirations: 18 Pulse Ox (%): 96 Assessment And Plan - Plan - Physical Exam General: Alert, In no apparent distress, Oriented x3 HEENT: Atraumatic, Mucous membr. moist/pink, Sclerae nonicteric Neck: JVD not distended, Respiratory: Clear to auscultation bilaterally, Normal air movement Cardiovascular: No edema, Regular rate/rhythm, No gallops, No rubs, No murmurs Gastrointestinal: Normal bowel sounds, Soft and benign, Non-distended, No tenderness, No rebound, No guarding Musculoskeletal: No clubbing Integumentary: No rashes Neurological: Normal speech, Normal affect # Hypercalcemia suspect secondary to Primary Hyperparathyroidism # Hypovitaminosis D - Evaluation thus far: - Labs = initial Ca2+ 17.8, Ionized Ca2+ pending, Albumin 3.6, Phos 2.8, Magnesium 1.9, 25-hydroxyvitamin D 19.9, PTH 934.7, PTHrP pending, TSH 7.08 - Urinalysis = fairly unremarkable - SPEP/UPEP = pending - Medication review = takes PRN calcium carbonate at home, but not enough to explain his degree of hypercalcemia - Management plan: - Consulted Nephrology and spoke with Dr. Pardo - recommendations appreciated - Consulted ENT and spoke with Dr. Corona - recommendations appreciated - Recommended parathyroid (sestimibi) scan = "delayed uptake at the the right lobe of the thyroid that may reflect a parathyroid adenoma." - Plan to obtain CT neck with contrast once creatinine < 1.5 and cleared by Nephrology - Continue IV fluids with Normal Saline - Continue pamidronate, cinacalcet # KDIGO Stage I Acute Kidney Injury - Creatinine = 1.80 -> 1.71 -> 1.77 (baseline creatinine unknown) - Urinalysis = fairly unremarkable - Renal ultrasound = "increased renal echotexture consistent with parenchymal disease" - IV fluids as mentioned above - Monitor creatinine and urine output - Renally dose medications # Hypothyroidism secondary to Prior Thyroid Ablation # Several Right-Thyroid Nodules - TSH = 7.08, Free T4 = 0.68 - Thyroid ultrasound = "several right thyroid nodules probably benign. Follow-up ultrasound in 1 year is recommended for re-evaluation" - Started low dose levothyroxine # Hypertensive Urgency - Blood pressure better controlled - Resume home medications once verified Daivd Carr M.D.
[2022-06-15] MEDS: carvediloL 25 MG TAB PO SCH (20:08)
[2022-06-16] MEDS: NA CHLORIDE 0.9% 1,000 ML IV SCH ×5 (00:19→21:49)
[2022-06-16 03:36] LABS: Absolute Lymphocytes (CBC) 0.8 K/uL (0.7-4.9); Hematocrit 34.3 % (39.6-49.0); Lymphocytes % 10.2 % (15.3-44.8); MPV 10.2 fL (7.6-11.3)
[2022-06-16 03:38] LABS: MCV 64.7 fL (80-100)
[2022-06-16 03:57] LABS: Albumin 2.8 g/dL (3.4-5.0); Bilirubin Total 0.2 mg/dL (0.2-1.0); Phosphorus 1.9 mg/dL (2.5-4.9); Potassium 3.8 mmol/L (3.5-5.1); Protein, Total 6.1 g/dL (6.4-8.2)
[2022-06-16 03:58] LABS: Magnesium 1.4 mg/dL (1.6-2.4)
[2022-06-16] MEDS ORDERED: Magnesium Sulfate 2gm IVPB 2 G/50 ML BAG IV ONE (05:00)
[2022-06-16] MEDS: LEVOTHYROXINE SOD 0.125 MG TAB PO SCH (05:37)
[2022-06-16 06:01] VITALS: O2SAT 98
[2022-06-16] MEDS: POTASS/SODIUM PHOSPHATE 1 PKT POWD.PACK PO SCH ×3 (06:14→10:24)
[2022-06-16] MEDS ORDERED: POTASSIUM CL SA 10 MEQ TAB PO ONE (09:00)
[2022-06-16] MEDS: carvediloL 25 MG TAB PO SCH ×2 (10:20→21:48)
[2022-06-16] MEDS: AMLODIPINE 5 MG TAB PO SCH ×2 (10:21→21:49)
[2022-06-16] MEDS: ENOXAPARIN 40 MG/0.4 ML SQ SCH (10:21)
[2022-06-16] MEDS: CINACALCET HCL 30 MG TAB PO SCH (10:23)
[2022-06-16] MEDS: HYDRALAZINE HCL 25 MG TABLET PO SCH ×3 (10:23→21:49)
--- NOTE | 2022-06-16 19:49 | P.PN ---
Subjective Date of Service: 06/16/22 Chief Complaint: Hypercalcemia, GABY No acute events overnight. He reports significant improvement in his symptoms. However, his creatinine remains elevated. Ideally, would like to obtain CT neck with contrast prior to parathyroidectomy. He denies any abdominal pain, nausea, vomiting, or changes in bowel habits. Review of Systems 10-point ROS is otherwise unremarkable General: Weakness, Malaise Physical Examination - Vital Signs Temperature: 97.9 F Blood Pressure: 140/66 Pulse: 57 Respirations: 16 Pulse Ox (%): 99 Assessment And Plan - Plan - Physical Exam General: Alert, In no apparent distress, Oriented x3 HEENT: Atraumatic, Mucous membr. moist/pink, Sclerae nonicteric Neck: JVD not distended Respiratory: Clear to auscultation bilaterally, Normal air movement Cardiovascular: No edema, Regular rate/rhythm, No gallops, No rubs, No murmurs Gastrointestinal: Normal bowel sounds, Soft and benign, Non-distended, No tenderness, No rebound, No guarding Musculoskeletal: No clubbing Integumentary: No rashes Neurological: Normal speech, Normal affect # Hypercalcemia suspect secondary to Primary Hyperparathyroidism # Hypovitaminosis D - Evaluation thus far: - Labs = initial Ca2+ 17.8, Ionized Ca2+ pending, Albumin 3.6, Phos 2.8, Magnesium 1.9, 25-hydroxyvitamin D 19.9, PTH 934.7, PTHrP pending, TSH 7.08 - Urinalysis = fairly unremarkable - SPEP/UPEP = pending - Medication review = takes PRN calcium carbonate at home, but not enough to explain his degree of hypercalcemia - Management plan: - Consulted Nephrology and spoke with Dr. Pardo - recommendations appreciated - Consulted ENT and spoke with Dr. Corona - recommendations appreciated - Recommended parathyroid (sestimibi) scan = "delayed uptake at the the right lobe of the thyroid that may reflect a parathyroid adenoma." - Plan to obtain CT neck with contrast once creatinine < 1.5 and cleared by Nephrology - Continue IV fluids with Normal Saline - Continue pamidronate, cinacalcet # KDIGO Stage I Acute Kidney Injury - Consulted Nephrology and spoke with Dr. Pardo - recommendations appreciated - Creatinine = 1.80 -> 1.71 -> 1.77 -> 1.93 (baseline creatinine unknown) - Urinalysis = fairly unremarkable - Renal ultrasound = "increased renal echotexture consistent with parenchymal disease" - IV fluids as mentioned above - Monitor creatinine and urine output - Renally dose medications # Hypothyroidism secondary to Prior Thyroid Ablation # Several Right-Thyroid Nodules - TSH = 7.08, Free T4 = 0.68 - Thyroid ultrasound = "several right thyroid nodules probably benign. Follow-up ultrasound in 1 year is recommended for re-evaluation" - Started low dose levothyroxine # Hypertensive Urgency - Blood pressure better controlled - Resume home medications once verified David Carr M.D.
--- NOTE | 2022-06-17 00:17 | PN ---
Date of Progress Note: 06/16/2022 Subjective: The patient was admitted with hypercalcemia and acute kidney injury secondary to calcium diuresis. Patient's workup found primary hyperparathyroidism. Patient received pamidronate and was placed on Sensipar. The patient's workup with sestamibi camera localized the adenoma and found to h ave possible adenoma on the right lobe of the thyroid. The patient still waiting for CT with contras t to further localize the adenoma before surgery as patient being evaluated by Dr. Corona, the ENT. Physical Examination: Vital Signs: When I saw the patient, blood pressure 139/69, pulse of 65, afebrile. The patient had urine output of 5700. The patient's even balance of 100 positive. Chest: Clear to auscultation. Heart: S1, S2 regular. Abdomen: Soft, nontender. Extremities: No edema. Neurologic: Alert. No focality. Laboratory Data: WBC 7.4, H and H 10.9/34.3. Sodium 143, potassium 3.8, bicarb 24, BUN 32, creatini ne 1.9, GFR of 36, calcium down to 11.5, magnesium 1.4, phosphorous 1.9, albumin 2.8. Corrected calc ium is 12.6, which is much better than before. Current Medications: Include: 1.Lovenox. 2.Amlodipine 5 mg b.i.d. 3.Carvedilol. 4.Hydralazine 50 t.i.d. 5.Levothyroxine. 6.normal saline at 200 per hour. 7.Magnesium sulfate. Assessment And Plan: 1.Acute kidney injury, mostly secondary to prerenal secondary to calcium diuresis. The patient just started to be even balance and calcium now will start trending significantly down. I am going to co ntinue current IV fluid as patient now started to be positive and I will follow up the patient closel y. Workup includes serum protein electrophoresis still pending, even though patient does not have an y significant proteinuria. Given the worsening kidney function, I am going to go ahead and send for basic serology. 2.Hypertension, controlled, optimal. Continue current regimen. 3.Primary hyperparathyroidism, secondary to adenoma. I had long discussion with the patient and wit h the ENT. We will monitor for the next 48 hours to see the response after the calcium started trend ing down. Hopefully the calcium diuresis going to slow down and the patient is going to start being positive. At that time, we will see improvement in the kidney function. 4.After improvement in the kidney function, patient is going to be a candidate for CT with contrast to localize the adenoma and we will follow up with ENT for the surgery. 5.Hypomagnesemia. We will supplement. 6.Hypophosphatemia secondary to hyperparathyroidism. No need for supplement for the time being. 7.Renal cyst, simple. We will monitor. CORY/APOORVA Voice ID: [id number] Report ID: [id number]
[2022-06-17 01:29] VITALS: BMI 27.0
[2022-06-17] MEDS: NA CHLORIDE 0.9% 1,000 ML IV SCH ×3 (03:19→10:55)
[2022-06-17] MEDS: LEVOTHYROXINE SOD 0.125 MG TAB PO SCH (05:19)
[2022-06-17 05:51] LABS: Hematocrit 33.8 % (39.6-49.0)
[2022-06-17 06:06] LABS: Albumin 2.6 g/dL (3.4-5.0); Phosphorus 1.6 mg/dL (2.5-4.9); Potassium 3.8 mmol/L (3.5-5.1)
[2022-06-17] MEDS ORDERED: POTASSIUM 25 MEQ EFFERV TAB PO ONE (06:21)
[2022-06-17] MEDS: POTASS/SODIUM PHOSPHATE 1 PKT POWD.PACK PO SCH ×6 (07:49→20:11)
[2022-06-17 08:37] LABS: Hepatitis B Core Ab, Total Reactive (Nonreactive); Hepatitis B surface AG Interp. Reactive (Nonreactive)
[2022-06-17 08:39] LABS: Hepatitis B Surface Ab - Quant < 3.10 mIU/mL (<8.0)
[2022-06-17] MEDS: AMLODIPINE 5 MG TAB PO SCH ×2 (08:51→20:11)
[2022-06-17] MEDS: carvediloL 25 MG TAB PO SCH ×2 (08:51→20:12)
[2022-06-17] MEDS: CINACALCET HCL 30 MG TAB PO SCH (08:51)
[2022-06-17] MEDS: ENOXAPARIN 40 MG/0.4 ML SQ SCH (08:51)
[2022-06-17] MEDS: HYDRALAZINE HCL 25 MG TABLET PO SCH ×3 (08:51→20:12)
--- NOTE | 2022-06-17 12:57 | RAD REPORT ---
EXAM DESCRIPTION: CT - Soft Tissue Neck W/Contr - 06/17/2022 12:42 pm CLINICAL HISTORY: hyperparathyroidism localization, abnormal ultrasound, abnormal parathyroid nuclea r medicine imaging COMPARISON: Parathyroid Imaging dated 06/14/2022; Thyroid Para Parotid Gland dated 06/13/2022 TECHNIQUE: During dynamic enhancement using 100 milliliters nonionic IV contrast, axial 3 millimeter thick images of the neck were obtained. All CT scans are performed using dose optimization technique as appropriate and may include automated exposure control or mA/KV adjustment according to patient size. FINDINGS: Ultrasound imaging showed a multinodular right thyroid lobe the dominant 2 centimeter nodu le. Parathyroid imaging showed delayed clearing of the sestamibi in the midportion of the right lobe. On CT imaging there is a 1.8 cm CC x 2.1 cm AP x 1.6 cm TR solid mass showing absent or significantly diminished enhancement compared to the adjacent enhancing thyroid tissue. The mass is in the posteri or midportion of the right thyroid lobe. Collective findings would indicate the right thyroid dominan t mass is a hyperfunctioning parathyroid adenoma. Minimal right thyroid lobe nodularity is identified matching the other small thyroid nodules. No suspicious finding on the small or atrophic left lobe. In the adjacent soft tissues no mass or lymphadenopathy to suspect ectopic parathyroid gland or patho logic lymphadenopathy. No pharyngeal mucosal mass or asymmetry seen. No tongue base or tonsil suspicious finding. Epiglottis and laryngeal structures within normal range. Normal vasculature. No significant atherosclerotic cindy nge. The parotid and submandibular glands are unremarkable. IMPRESSION: A 2.1 centimeter solid mass posterior midportion right lobe thyroid gland is seen. This is the correlate to the parathyroid abnormality and the dominant solid nodule at thyroid sonography. Collective findings would indicate the mass is a parathyroid adenoma.
--- NOTE | 2022-06-17 14:00 | P.PN ---
Subjective Date of Service: 06/17/22 Chief Complaint: Hypercalcemia, GABY Subjective: Other (No urinary complaints.) Physical Examination - Vital Signs Temperature: 97.8 F Blood Pressure: 117/58 Pulse: 53 Respirations: 16 Pulse Ox (%): 98 - Physical Exam General: Other (Appears as his stated age) HEENT: Atraumatic, Normocephalic Neck: Supple, JVD not distended Respiratory: Other (Symmetric chest expansion) Cardiovascular: No rubs, No murmurs Gastrointestinal: Soft and benign, No guarding Musculoskeletal: No clubbing Integumentary: No warmth Neurological: Normal tone Urinary: Other (No bladder distention) External genitalia: Deferred Rectal: Deferred Assessment And Plan - Plan 1. Acute kidney injury, mostly secondary to prerenal secondary to calcium diure sis. Received IV fluids. [place] po fluid intake. 2. Hypercalcemia 2/2 PHPTH. Improved. Received IV fluids. On cinacalcet. 3. Hypertension, controlled, optimal. Continue current regimen. 4. Primary hyperparathyroidism, secondary to parathyroid adenoma. On sensipar. He is scheduled to undergo parathyroidectomy on 07/01/2022. 5. Vit D deficiency. Start D repletion when serum Ca normalized. 6. Hypomagnesemia. Mg repletion prn. 7. Hypophosphatemia. Phos repletion today. 8. Renal cyst, simple. We will monitor. 9. Anemia. Monitor cbc. Physician Review: Patient Assessed, Agree with Above Assessment and Plan
[2022-06-17] MEDS ORDERED: POTASSIUM PHOS IN 0.9 % NACL 15 MMOL/250 ML BAG IV ONE (15:00)
[2022-06-17 15:23] LABS: Vitamin D 1,25-Dihydroxy Total 57 pg/mL (18-72); Vitamin D,1,25-OH2, D2 <8 pg/mL
--- NOTE | 2022-06-17 15:27 | P.DS ---
Admission Date: 06/13/22 Discharge Date: 06/17/22 Disposition: ROUTINE DISCHARGE Discharge Condition: GOOD Reason for Admission: Hypercalcemia, GABY Consultations: 1. Nephrology 2. Otorhinolaryngology Hospital Course: DIAGNOSES: # Hypercalcemia suspect secondary to Primary Hyperparathyroidism # Hypertensive Urgency # KDIGO Stage I Acute Kidney Injury # Hypothyroidism secondary to Prior Thyroid Ablation # Chronic Hepatitis B Infection # Several Right-Thyroid Nodules # Hypovitaminosis D HOSPITAL COURSE: Mr. Ambrose Hyman is a pleasant 71-year-old male with a past medical history significant for hypertension and hypothyroidism secondary to a prior thyroid ablation who was admitted to the [facility] on 06/13/2022 for generalized weakness/malaise. He was admitted to the Medicine service. Upon further evaluation, he was found to have a calcium level of 17.8. Further evaluation would reveal a PTH 934.7, consistent with primary hyperparathyroidism. He was noted to have an acute kidney injury secondary to the hypercalcemia, for which Nephrology was consulted. He was evaluated by Dr. Pardo and treated with IV fluids. Over the course of his hospitalization, he had significant improvement in his creatinine as well as his calcium levels. A parathyroid (sestimibi) scan was obtained, which revealed "delayed uptake at the the right lobe of the thyroid that may reflect a parathyroid adenoma." Otorhinolaryngology was consulted and he was evaluated by Dr. Corona. Dr. Corona recommended obtaining a CT of the neck with contrast to further evaluate and localize the parathyroid lesion. This morning, the creatinine had improved, but was still elevated at 1.62. Dr. Corona requested that we obtain the CT with contrast if it was okay from the Radiology and Nephrology standpoints. I spoke with Dr. Pardo (Nephrology) and Dr. Rosado (Radiology), who were both in agreement to obtain a CT. This study revealed, "a 2.1 centimeter solid mass posterior midportion right lobe thyroid gland is seen. This is the correlate to the parathyroid abnormality and the dominant solid nodule at thyroid sonography. Collective findings would indicate the mass is a parathyroid adenoma." I spoke with Dr. Corona, who has cleared him for discharge with outpatient surgery. He has been tentatively scheduled for an outpatient parathyroidectomy on 07/01/2022. I also spoke with Dr. Pardo, who has cleared him for discharge with cinacalcet. He will schedule him for a follow-up BMP in about 3-5 days. Incidentally, he was found to have a chronic hepatitis B infection. It was recommended that he have further Gastroenterology evaluation as an outpatient. His , Ms. Richardson, states that she will have him follow with Dr. Jaramillo for further evaluation of his chronic hepatitis B. He was also noted to have multiple thyroid nodules, for which he was advised to schedule a follow-up ultrasound in about 6 months. He verbalized understanding and agreed to make this appointment. On 06/17/2022, he was seen on morning rounds and deemed medically stable for discharge. He was discharged with instructions to schedule follow-up appointments with his PCP (Dr. Greenwood), with Otorhinolaryngology (Dr. Corona), with Nephrology (Dr. Pardo), and with Gastroenterology (Dr. Jaramillo). He was provided prescriptions for carvedilol, hydralazine, levothyroxine, and cinacalcet. He and his were given the opportunity to ask questions and reported no further questions. Furthermore, all questions were answered to the best of my ability. A copy of this discharge summary will be sent to the above providers to facilitate continuity of care. Today, I personally spent 35 minutes on his case, of which greater than 50% of the time was spent in patient education, counseling, and coordination of care as described above. - Physical Exam General: Alert, In no apparent distress, Oriented x3 HEENT: Atraumatic, Mucous membr. moist/pink, Sclerae nonicteric Neck: JVD not distended Respiratory: Clear to auscultation bilaterally, Normal air movement Cardiovascular: No edema, Regular rate/rhythm, No gallops, No rubs, No murmurs Gastrointestinal: Soft and benign, Non-distended, No tenderness, No rebound, No guarding Musculoskeletal: No clubbing Integumentary: No rashes Neurological: Normal speech, Normal affect Vital Signs/Physical Exam: Temp Pulse Resp BP Pulse Ox 97.8 F 53 16 117/58 L 98 06/17/22 13:59 06/17/22 13:59 06/17/22 13:59 06/17/22 13:59 06/17/22 13:59 Laboratory Data at Discharge: WBC 7.40 K/uL (4.3-10.9) 06/16/22 02:51 Hgb 10.7 g/dL (13.6-17.9) L 06/17/22 05:15 Hct 33.8 % (39.6-49.0) L 06/17/22 05:15 Plt Count 162 K/uL (152-406) 06/16/22 02:51 Sodium 145 mmol/L (136-145) 06/17/22 05:15 Potassium Cancelled 06/17/22 Unknown BUN 28 mg/dL (7-18) H 06/17/22 05:15 Creatinine 1.62 mg/dL (0.70-1.30) H 06/17/22 05:15 Glucose 101 mg/dL (74-106) 06/17/22 05:15 Uric Acid 10.6 mg/dL (3.5-7.2) H 06/13/22 20:18 Phosphorus 1.6 mg/dL (2.5-4.9) L 06/17/22 05:15 Magnesium 2.2 mg/dL (1.6-2.4) 06/16/22 09:36 Total Bilirubin 0.2 mg/dL (0.2-1.0) 06/16/22 02:51 AST 11 U/L (15-37) L 06/16/22 02:51 ALT 19 U/L (16-61) 06/16/22 02:51 Alkaline Phosphatase 89 U/L (45-117) D 06/16/22 02:51 Home Medications: Amlodipine [Norvasc*] 5 mg BID 06/13/22 Lisinopril [Zestril] 20 mg BID 06/13/22 Cinacalcet HCl 60 mg PO DAILY #30 tab 06/17/22 Hydralazine [Apresoline*] 50 mg PO TID #180 tab 06/17/22 Levothyroxine Sodium [Levothyroxine] 25 mcg PO DAILY #30 tab 06/17/22 carvediloL [Coreg*] 25 mg PO BID #60 tab 06/17/22 New Medications: Hydralazine [Apresoline*] 50 mg PO TID #180 tab Cinacalcet HCl 60 mg PO DAILY #30 tab carvediloL [Coreg*] 25 mg PO BID #60 tab Levothyroxine Sodium [Levothyroxine] 25 mcg PO DAILY #30 tab Physician Discharge Instructions: 1. Please call and schedule follow-up appointment with your PCP (Dr. Greenwood) in 3- 5 days - Please make sure to schedule a follow-up ultrasound of your thyroid in about 6 months 2. Please call and schedule a follow-up appointment with Nephrology (Dr. Pardo) in 3-5 days - He will schedule you for repeat lab work to monitor your kidney function 3. Please call and schedule a follow-up appointment with ENT (Dr. Corona) - she is tentatively planning for a surgery to remove your parathyroid gland on 07/01/2022 4. Please and call and schedule a follow-up appointment with Gastroenterology (Dr. Jaramillo) in 5-7 days - He will need to further evaluate your hepatitis B infection Diet: Regular Activity: Ad giorgio Followup: Krystyna LAU,Elaine-Archie Solano DO [Primary Care Provider] - Mariella Corona MD [ACTIVE - CAN ADMIT] - Radha Jaramillo MD [OUTSIDE PHYSICIAN] - Prabhakar Pardo MD [ACTIVE - CAN ADMIT] - Time spent managing pt's care (in minutes): 35
[2022-06-17] MEDS ORDERED: PNEUMOCOCCAL VACCINE 0.5 ML IMVAC ONE (20:08)
[2022-06-17] MEDS: PNEUMOCOCCAL VACCINE 0.5 ML IMVAC ONE ×2 (20:12→20:50)
[2022-06-18 06:35] LABS: Albumin, (SPE) 3.7 g/dL (3.8-4.8); Alpha-1-Globulins 0.3 g/dL (0.2-0.3); Alpha-2-Globulins 0.6 g/dL (0.5-0.9); Gamma Globulins 1.3 g/dL (0.8-1.7); INTERPRETATION REPORT
[2022-06-18 08:30] VITALS: BP 117/58; TEMP 97.8
[2022-06-20 17:22] LABS: Hepatitis C Virus RNA (PCR)log <1.18 log IU/mL
[2022-06-21 08:24] LABS: HIV AG/AB 4TH GEN Non-reactive (Non-reactive)
[2022-06-23 22:08] LABS: Beta Globulin 24 HR Urine 12 %; Gamma Globulin, 24hr Urine 8 %; Interpretation: REPORT; Protein/Crea Ratio in g 509 mg/g creat (<100); Protein/Crea Ratio in mg 0.509 (<0.100); Urine Alpha-2-Globulins, 24 Hr 4 %; Urine PEP Abn Protein Band1 REPORT; Urine Total Volume 24 Hours 3550 mL
== END 2022-06-17 20:50 | disposition home or self-care (01) | DRG 644 ==
LOC: ER 16:31 → ERHOLD 19:33 → 2ND 06-14 08:08
PROVIDERS: ADMIT Internal Medicine; ATTEND Internal Medicine
DX: E21.0 Primary hyperparathyroidism (principal); B18.1 Chronic viral hepatitis B without delta-agent; N17.9 Acute kidney failure, unspecified; I16.0 Hypertensive urgency; E04.1 Nontoxic single thyroid nodule; E86.0 Dehydration; D64.9 Anemia, unspecified; I10 Essential (primary) hypertension; K21.9 Gastro-esophageal reflux disease without esophagitis; N28.1 Cyst of kidney, acquired; E03.9 Hypothyroidism, unspecified; Z90.49 Acquired absence of other specified parts of digestive tract; Z79.890 Hormone replacement therapy; Z79.899 Other long term (current) drug therapy; Z20.822 Contact with and (suspected) exposure to COVID-19
CPT/HCPCS: 0240U; 36415; 70450; 70491; 71045; 71046; 76536; 76770; 78070; 80048; 80053; 80069; 80076; 81001; 82306; 82330; 82533; 82570; 82652; 83519; 83520; 83735; 83970; 84100; 84132; 84156; 84165; 84166; 84439; 84443; 84550; 85014; 85018; 85025; 86021; 86038; 86160; 86225; 86334; 86704; 86706; 87340; 87389; 87522; 90471; 90732; 96361; 96365; 96375; 99285; A9500; G0103; J0360; J1650; J1940; J2430; J3475; J7030; J7050; Q9967

== ENCOUNTER 2022-07-01 08:41 | Day surgery (SDC) | payer BC ==
[2022-06-28 11:27] LABS: SARS-CoV-2 Antigen Rapid Res Negative (Negative)
[2022-06-28 11:34] LABS: Albumin 3.5 g/dL (3.4-5.0); Bilirubin Total 0.3 mg/dL (0.2-1.0); Potassium 4.7 mmol/L (3.5-5.1); Protein, Total 7.2 g/dL (6.4-8.2)
[2022-06-28 11:36] LABS: Thyroid Stimulating Hormone 11.2 uIU/mL (0.358-3.740)
--- NOTE | 2022-06-29 14:13 | EKG ---
Test Date: 2022-06-28 Test Time: 10:38:03 Staff Home Therapy Rn: BARRY MEASUREMENT RESULTS: Intervals: Rate: 59 MT: 178 QRSD: 74 QT: 376 QTc: 372 Mora: P: 39 MT: 178 QRS: -16 T: 44 INTERPRETIVE STATEMENTS: Sinus bradycardia with sinus arrhythmia Septal infarct, age undetermined Abnormal ECG No previous ECG available for comparison Electronically Signed On 06-29-22 14:12:52 [employer]ANT TAX[employer]IST by Dimitri Hair
[2022-07-01] MEDS ORDERED: Ringers Lactate 1,000 ML IV ONE ×2 (08:58→11:38)
[2022-07-01] MEDS ORDERED: ROCURONIUM 50 MG/5 ML VIAL IV ONE (09:33)
[2022-07-01] MEDS ORDERED: propofoL 200 MG/20 ML VIAL IV ONE (09:33)
[2022-07-01] MEDS ORDERED: dexAMETHasone 10 MG/ML VIAL ONE (09:33)
[2022-07-01] MEDS ORDERED: MIDAZOLAM HCL 2 MG/2 ML INJ ONE (09:33)
[2022-07-01] MEDS ORDERED: FENTANYL CITR 100 MCG/2 ML ONE ×2 (09:33→11:07)
[2022-07-01] MEDS ORDERED: ONDANSETRON 4 MG/2 ML VIAL ONE (09:34)
[2022-07-01] MEDS ORDERED: LIDOCAINE 2% MPF 5 ML VIAL ONE (09:34)
[2022-07-01] MEDS ORDERED: EPINEPHRINE/PF 1 MG/ML AMP ONE (09:51)
[2022-07-01] MEDS ORDERED: LIDOCAINE 1.5% W/EPI AMP 5 ML ONE (09:52)
[2022-07-01] MEDS ORDERED: BUPIVACAINE 0.5% PF 10 ML VIAL ONE (09:52)
[2022-07-01] MEDS ORDERED: EPHEDRINE SULF 50 MG/ML VIAL ONE ×2 (10:49→12:22)
[2022-07-01] MEDS ORDERED: GLYCOPYRROLATE 0.2 MG/ML SYR ONE ×2 (10:52→11:42)
[2022-07-01] MEDS ORDERED: Phenylephrine HCl 10 MG/ML 1 ML VIAL ONE (11:35)
[2022-07-01] MEDS ORDERED: ALBUMIN HUM 5% 250 ML IV ONE (12:07)
[2022-07-01] MEDS ORDERED: ALBUMIN HUMAN 25% 0 ML IV ONE (12:07)
[2022-07-01] MEDS ORDERED: Mastisol Adhesive Liq ONE (14:06)
--- NOTE | 2022-07-01 14:28 | P.OP ---
Glass Etcher Helper: ANAND RICHARDS (and Hien Baeza) Preoperative diagnosis: hyperparathryoidism, hypercalcemia, parathyroid adenoma Postoperative diagnosis: same Primary procedure: right superior parathyroidectomy Secondary procedure: right hemithyroidectomy Anesthesia: general Estimated blood loss: 20ml Specimen: right thyroid with parathyroid adenoma Findings: preop PTH 774, postop PTH 78 Operative Technique: After induction of anesthesia using a Nims tube the patient was positioned supine with a shoulder roll and donut sponge for support of the head. The grounding and stimulating electrodes for the nerve monitor were placed in the subcutaneous tissue of the right shoulder and secured with tape. The planned incision site was injected with approximately 3 mL of 1.5% lidocaine with epinephrine. The neck was cleaned with Betadine and draped in a sterile fashion. A 2 cm incision was made through the skin and subcutaneous tissues using Bovie electrocautery positioned on the right neck near midline at the level 1 fingerbreadth below the cricoid cartilage. The platysma was identified and divided. The strap muscles were identified and initially laterally with intent for a lateral approach to the parathyroid. The thyroid gland was fibrotic and somewhat scarred down to the strap muscles, likely a side effect of the previous radioactive iodine. This made identification of tissue planes more challenging. The strap muscles were then identified in the midline and retracted laterally over the anterior surface of the thyroid. Again the strap muscles were fairly stuck down making dissection more difficult. The inferior border of the thyroid was then identified and carefully dissected from surrounding tissues. After elevating the inferior aspect carefully, there was fatty tissue that was gently explored and palpated with no discernible or palpable parathyroid adenoma. There was a palpable nodule of about 1 to 1.5 cm along the inferior pole but this was felt to be more thyroid rather than parathyroid in appearance and texture. The thyroid was traced along its lateral border and the superior direction and the superior pole was carefully mobilized and divided from vascular attachments using the LigaSure. An approximate 1.5 to 2 cm firm yellowish nodule was identified on the posterior surface of the right thyroid tracking deeply towards the tracheoesophageal groove. The mass seemed densely adherent and stuck down to the thyroid and decision was made to proceed with hemithyroidectomy in order to better and more safely identify important neurovascular structures associated with the thyroid gland and avoid undue risk to the recurrent laryngeal nerve. The isthmus was exposed and the LigaSure was used to divide the isthmus in the midline along the anterior tracheal wall. Fatty tissues between the isthmus and the superior pole were carefully divided using the LigaSure. Judicious and careful dissection was carried out along the lateral surface of the trachea. The inferior and lateral aspect of the thyroid was divided from vascular attachments including the middle thyroid vein using the LigaSure. Careful and judicious dissection was carried out with careful attention in looking for the recurrent laryngeal nerve though it was not formally identified during the dissection. Dissection using a Arguelles dissector with LigaSure for cauterization of vessels and careful cutting of divided tissues using tenotomy scissors allowed release of the thyroid from the area of Christian's ligament. Again careful inspection was made for the recurrent laryngeal nerve though it was not formally identified. The parathyroid adenoma remained attached in the area of the tracheoesophageal groove, above the thyroid arytenoid joint. Careful dissection finally allowed freeing of the soft tissue attachments and removal of the specimen. Time was marked as 12:45 PM at the time of specimen removal. The surgical cavity was packed with Ray-Palomo's. After 20 minutes, a blood specimen was collected from the patient by the anesthesiologist and sent to lab for intraoperative PTH monitoring to ensure complete biochemical response. While awaiting results from the lab, the surgical wound was carefully inspected. There is a small amount of oozing from around the strap muscles and along the lateral edge of the cricothyroid muscle. Ray-Palomo packing was again applied and direct pressure applied for several minutes. After removal of oozing was significantly improved. A small piece of Surgicel was placed within the surgical cavity especially along the cricothyroid muscle in order to avoid cauterization and tissue injury. A 10 Sinhala round JAYNA drain was placed through the skin of the right lateral neck flap and placed within the surgical cavity, the drain was secured with a 3-0 nylon suture. Intraoperative PTH was confirmed at 78, indicating an approximate 90% drop from preoperative measurements and a value within normal limits indicating appropriate biochemical response to removal of a single parathyroid adenoma. The strap muscles were then approximated with a single suture in the midline. The incision was closed in layered fashion using 4-0 Vicryl deep sutures and 4-0 Monocryl subcuticular sutures. The drain was placed on suction. The incision was dressed with Mastisol and Steri-Strips. The procedure was concluded. All counts of sponges and needles were confirmed correct as reported by the operating room staff. The patient was returned to care of anesthesia for awakening extubation in the operating room which proceeded without difficulty. Patient was transferred to the recovery room in stable condition. Complications: None Drain(s): JAYNA drain Fluids & blood products: 2L crystalloid, 500ml albumin Transferred to: Recovery Room Condition: Good
[2022-07-01] MEDS ORDERED: HYDROCODONE/APAP 5/325 MG TAB ONE (15:29)
[2022-07-01 16:45] VITALS: BP 128/64; TEMP 97.6; O2SAT 98
[2022-07-01] MEDS ORDERED: TAMSULOSIN 0.4 MG SR CAP ONE (17:05)
== END 2022-07-01 17:20 | disposition home or self-care (01) ==
LOC: OR 08:41
PROVIDERS: ATTEND Otolaryngology
PROC: 0GTH0ZZ Resection of Right Thyroid Gland Lobe, Open Approach (ICD-10-PCS; 2022-07-01)
PROC: 0GBL0ZZ Excision of Right Superior Parathyroid Gland, Open Approach (ICD-10-PCS; principal; 2022-07-01 10:30)
DX: E07.9 Disorder of thyroid, unspecified (principal); E21.0 Primary hyperparathyroidism; E03.2 Hypothyroidism due to medicaments and other exogenous substances; B19.10 Unspecified viral hepatitis B without hepatic coma; E83.52 Hypercalcemia; D34 Benign neoplasm of thyroid gland
CPT/HCPCS: 60500; 60220; 93005; 36415 ×2; 88307; 84443; 84439; 83970 ×2; 80053; 87811; J2704; J2370; J2001; J2250; J3010 ×2; J1100; P9045; J7120 ×2; J2405; J0171; P9047